=== PATIENT | female | born 1990 ===

== ENCOUNTER 2018-02-14 13:16 | Emergency (ER) | payer BC ==
[2018-02-14 13:21] VITALS: BP 139/88; PULSE 99; RESP 16; TEMP 98.1; O2SAT 100
[2018-02-14] MEDS ORDERED: Metoclopramide 10 mg/10 ml Cup PO STA (13:51)
--- NOTE | 2018-02-14 14:02 | ED PDOC ---
HPI: Headache Time Seen by Provider: 02/14/18 13:27 Chief Complaint (Nursing): Headache Chief Complaint (Provider): Headache History Per: Patient History/Exam Limitations: no limitations Onset/Duration Of Symptoms: Days (x2 weeks) Current Symptoms Are (Timing): Still Present Quality: Aching Preceeding Symptoms: None Associated Symptoms: denies: Photophobia, Blurred Vision, Nausea, Vomiting, Extremity Weakness Additional Complaint(s): 27 y/o female with no significant pmhx, presenting for evaluation of a left sided headache x2 weeks. Patient states her headache waxes and wanes throughout the day. She denies taking any medication for her headache. Patient also denies fever, nausea, vomiting, neck pain, neck stiffness, weakness, numbness, abdominal pain, cough, or shortness of breath. Patient admits she's supposed to be wearing glasses, but states she never does. Also denies any falls or trauma to the head. LMP was 01/07/18. Of note: Patient also requesting evaluation of a lump to the left breast which she noticed 2 days ago. She states she's been taking Tylenol for this and reports her last dose was yesterday night with mild relief. Patient is expressing concern for family history of ovarian cancer, but denies any family history of breast cancer. Patient reports a history of similar symptoms when her is due to menstruate. Denies fever, nipple discharge, redness, or swelling to the breast. She states there is only pain on direct contact. PMD: None Past Medical History Reviewed: Historical Data, Nursing Documentation, Vital Signs Vital Signs: Last Vital Signs Temp 98.1 F 02/14/18 13:18 Pulse 99 H 02/14/18 13:18 Resp 16 02/14/18 13:18 BP 139/88 02/14/18 13:18 Pulse Ox 100 02/14/18 13:18 - Medical History PMH: No Chronic Diseases - Surgical History Surgical History: No Surg Hx - Family History Family History: States: Other Other Family History: Ovarian cancer - Home Medications Home Medications: Ambulatory Orders Medication Instructions Recorded Ibuprofen [Motrin Tab] 600 mg PO Q6 PRN #20 tab 02/14/18 - Allergies Allergies/Adverse Reactions: Allergies Allergy/AdvReac Type Severity Reaction Status Date / Time No Known Allergies Allergy Verified 02/14/18 13:18 Review of Systems ROS Statement: Except As Marked, All Systems Reviewed And Found Negative Constitutional: Negative for: Fever Respiratory: Negative for: Cough, Shortness of Breath Gastrointestinal: Negative for: Nausea, Vomiting, Abdominal Pain Musculoskeletal: Positive for: Other (left breast lump). Negative for: Neck Pain Neurological: Negative for: Weakness, Numbness Physical Exam - Reviewed Nursing Documentation Reviewed: Yes Vital Signs Reviewed: Yes - Physical Exam Comments: GENERAL APPEARANCE: Patient is awake, alert, oriented x 3, in no acute distress. Nontoxic appearing. SKIN: Warm, dry; (-) cyanosis; (-) rash. HEAD: (-) scalp swelling or tenderness EYES: (-) conjunctival pallor, (-) scleral icterus. ENMT: (-) sinus tenderness; mucous membranes are moist. Pharynx: clear, (-) erythema (-) exudate. NECK: Supple, FROM (-) tenderness, (-) stiffness, (-) meningismus, (-) lymphadenopathy. CHEST AND RESPIRATORY: (-) rales, (-) rhonchi, (-) wheezes; breath sounds equal bilaterally. Speaking in full sentences, respirations even and nonlabored. HEART AND CARDIOVASCULAR: (-) irregularity; (-) murmur, (-) gallop. LEFT BREAST: 1cm x 1cm mobile minimally tender palpable lymph node to the 3 o' clock position of the left breast, (-) overlying skin changes, (-) rash, (-) warmth or erythema, (-) nipple drainage, (-) axillary tenderness, (-) evidence of infection. Tatiana Angelo served as a bed setter. ABDOMEN AND GI: Soft; (-) tenderness (-) guarding (-) distention. BACK: (-) CVA tenderness. NEURO AND PSYCH: Mental status as above. locks tender: Intact. Pupils equal and reactive ; EOMI; (-) facial asymmetry; tongue and uvula midline. Strength symmetric. Gait steady. - ECG O2 Sat by Pulse Oximetry: 100 (RA) Pulse Ox Interpretation: Normal Medical Decision Making Medical Decision Makin:51 Initial Impression: Headache, swollen lymph node to breast. Plan: --Reglan 10mg PO --Toradol 30mg IM --Tylenol 650mg PO --Reevaluation 1420 On re-evaluation, patient reports improvement of symptoms, denies headache at present. On exam, patient remains AAOx3, in no acute distress. On exam, neck is supple, lungs CTA, cardiac RRR, abdomen is soft and non-tender, neuro exam shows no focal findings. VSS, stable for discharge. Diagnostic results d/w the patient in great detail. Dx of headache, swollen lymph node d/w the patient. Based on history, exam and diagnostic results plan will be for discharge and outpatient follow up. Advised to follow up with primary care physician/clinic in 1-2 days without fail. Advised to take medication as prescribed. Return to the emergency room at any time for any new or worsening symptoms. Advised to seek further evaluation if lymph node remains swollen >2 weeks, patient states she will call her insurance company to find a local PMD. Patient states she fully agrees with and understands discharge instructions. States that she agrees with the plan and disposition. Verbalized and repeated discharge instructions and plan. I have given the patient opportunity to ask any additional questions. ------ Scribe Attestation: Documented by Bishop Moreira, acting as a scribe for JD Foster. Provider Scribe Attestation: All medical record entries made by the Scribe were at my direction and personally dictated by me. I have reviewed the chart and agree that the record accurately reflects my personal performance of the history, physical exam, medical decision making, and the department course for this patient. I have also personally directed, reviewed, and agree with the discharge instructions and disposition. Disposition - Clinical Impression Clinical Impression: Headache, Swollen lymph nodes - Patient ED Disposition Is Patient to be Admitted: No Counseled Patient/Family Regarding: Diagnosis, Need For Followup, Rx Given - Disposition Disposition: Routine/Home Disposition Time: 14:24 Condition: STABLE Prescriptions: Ibuprofen [Motrin Tab] 600 mg PO Q6 PRN #20 tab PRN Reason: Headache Instructions: Headache, Adult (DC) Forms: [facility] (Nepali) Print Language: FILIPINO - YOSSI Present On Arrival: None
== END 2018-02-14 15:37 | disposition home or self-care (01) ==
LOC: H.ER 13:16
DX: R51 Headache (principal); R59.9 Enlarged lymph nodes, unspecified
CPT/HCPCS: 81025; 96372; 99285; J1885